=== PATIENT | female | born 1950 | race Two or more races ===

== ENCOUNTER → 2017-04-01 09:19 | Outpatient (CLI) | payer OTHER ==
[~2017-04-01 09:19] MED LIST: FENOFIBRATE PO; OSEL75CA PO; SORBUTUSS LIQU473 ML PO; TESSALON200 MG PO; [UNRECOGNIZED DRUG - OTHER] PO
== END | disposition home or self-care (01) ==
LOC: LAB 09:19
DX: I10 Essential (primary) hypertension (principal); E11.9 Type 2 diabetes mellitus without complications; E03.8 Other specified hypothyroidism; E78.2 Mixed hyperlipidemia; N39.0 Urinary tract infection, site not specified; R82.79 Other abnormal findings on microbiological examination of urine

== ENCOUNTER 2017-08-01 10:12 | Outpatient (CLI) | payer OTHER | END 2017-08-01 10:29 | disposition home or self-care (01) | LOC: NUCLEAR 10:12 | DX: M81.0 Age-related osteoporosis without current pathological fracture (principal) ==

== ENCOUNTER 2017-08-04 09:13 | Outpatient (CLI) | payer OTHER | END 2017-08-04 09:18 | disposition home or self-care (01) | LOC: LAB 09:13 | DX: D64.89 Other specified anemias (principal); I10 Essential (primary) hypertension; E72.8 Other specified disorders of amino-acid metabolism; R74.0 Nonspecific elevation of levels of transaminase and lactic acid dehydrogenase [LDH]; E03.8 Other specified hypothyroidism; E55.0 Rickets, active; M81.0 Age-related osteoporosis without current pathological fracture; C50.412 Malignant neoplasm of upper-outer quadrant of left female breast; N39.0 Urinary tract infection, site not specified ==

== ENCOUNTER 2017-10-07 07:15 | Outpatient (CLI) | payer OTHER | END 2017-10-07 07:50 | disposition home or self-care (01) | LOC: LAB 07:15 | DX: I10 Essential (primary) hypertension (principal); E11.9 Type 2 diabetes mellitus without complications; E03.8 Other specified hypothyroidism; E78.2 Mixed hyperlipidemia ==

== ENCOUNTER 2018-02-04 10:11 | Outpatient (CLI) | payer OTHER | END 2018-02-04 10:35 | disposition home or self-care (01) | LOC: LAB 10:11 | DX: N39.0 Urinary tract infection, site not specified (principal); N18.2 Chronic kidney disease, stage 2 (mild); M81.0 Age-related osteoporosis without current pathological fracture ==

== ENCOUNTER 2018-04-10 09:45 | Outpatient (CLI) | payer OTHER | END 2018-04-10 09:54 | disposition home or self-care (01) | LOC: LAB 09:45 | DX: I10 Essential (primary) hypertension (principal); E11.9 Type 2 diabetes mellitus without complications; E03.8 Other specified hypothyroidism; E78.2 Mixed hyperlipidemia; N39.0 Urinary tract infection, site not specified ==

== ENCOUNTER 2018-07-16 07:48 | Outpatient (CLI) | payer OTHER | END 2018-07-16 07:58 | disposition home or self-care (01) | LOC: LAB 07:48 | DX: N39.0 Urinary tract infection, site not specified (principal); E03.8 Other specified hypothyroidism; E11.9 Type 2 diabetes mellitus without complications; I10 Essential (primary) hypertension; E78.2 Mixed hyperlipidemia; Z12.11 Encounter for screening for malignant neoplasm of colon; C50.412 Malignant neoplasm of upper-outer quadrant of left female breast ==

== ENCOUNTER 2018-11-11 07:49 | Outpatient (CLI) | payer OTHER | END 2018-11-11 07:54 | disposition home or self-care (01) | LOC: LAB 07:49 | DX: I10 Essential (primary) hypertension (principal); E11.9 Type 2 diabetes mellitus without complications; E03.8 Other specified hypothyroidism; E78.2 Mixed hyperlipidemia; N39.0 Urinary tract infection, site not specified ==

== ENCOUNTER 2019-03-25 11:24 | Outpatient (CLI) | payer OTHER | END 2019-03-25 15:01 | disposition home or self-care (01) | LOC: MRI 11:24 | DX: M54.5 Low back pain (principal); M25.551 Pain in right hip; M25.552 Pain in left hip | CPT/HCPCS: 72148 ==

== ENCOUNTER → 2019-07-12 09:12 | Outpatient (CLI) | payer OTHER | END | disposition home or self-care (01) | LOC: LAB 09:12 | DX: E11.9 Type 2 diabetes mellitus without complications (principal); I10 Essential (primary) hypertension; E03.8 Other specified hypothyroidism; E78.2 Mixed hyperlipidemia; N39.0 Urinary tract infection, site not specified ==

== ENCOUNTER 2019-08-24 14:21 | Outpatient (CLI) | payer OTHER | END 2019-08-24 14:22 | disposition home or self-care (01) | LOC: NUCLEAR 14:21 | PROVIDERS: ATTEND Obstetrics & Gynecology | DX: M81.0 Age-related osteoporosis without current pathological fracture (principal) ==

== ENCOUNTER 2020-01-25 08:24 | Outpatient (CLI) | payer OTHER | END 2020-01-25 15:00 | disposition home or self-care (01) | LOC: LAB 08:24 | PROVIDERS: ATTEND Internal Medicine Hematology & Oncology | DX: D64.89 Other specified anemias (principal); I10 Essential (primary) hypertension; R74.8 Abnormal levels of other serum enzymes; E78.00 Pure hypercholesterolemia, unspecified; E03.8 Other specified hypothyroidism; E11.9 Type 2 diabetes mellitus without complications; E78.2 Mixed hyperlipidemia; N39.0 Urinary tract infection, site not specified ==

== ENCOUNTER 2020-10-11 07:54 | Outpatient (CLI) | payer OTHER | END 2020-10-11 08:04 | disposition home or self-care (01) | LOC: TOM 07:54 | PROVIDERS: ATTEND Internal Medicine Gastroenterology | DX: K80.80 Other cholelithiasis without obstruction (principal); Z12.11 Encounter for screening for malignant neoplasm of colon; K57.90 Diverticulosis of intestine, part unspecified, without perforation or abscess without bleeding ==

== ENCOUNTER 2020-10-17 13:22 | Outpatient (CLI) | payer OTHER | END 2020-10-17 13:23 | disposition home or self-care (01) | LOC: NUCLEAR 13:22 | PROVIDERS: ATTEND Obstetrics & Gynecology | DX: M81.0 Age-related osteoporosis without current pathological fracture (principal) ==

== ENCOUNTER 2021-03-14 08:55 | Outpatient (CLI) | payer OTHER | END 2021-03-14 09:03 | disposition home or self-care (01) | LOC: LAB 08:55 | PROVIDERS: ATTEND Internal Medicine Cardiovascular Disease | DX: N39.0 Urinary tract infection, site not specified (principal); I10 Essential (primary) hypertension; E11.9 Type 2 diabetes mellitus without complications; E03.8 Other specified hypothyroidism; E78.2 Mixed hyperlipidemia; Z12.11 Encounter for screening for malignant neoplasm of colon; E55.9 Vitamin D deficiency, unspecified ==

== ENCOUNTER 2021-04-25 10:40 | Outpatient (CLI) | payer OTHER | END 2021-04-25 10:49 | disposition home or self-care (01) | LOC: SONOGRAMA 10:40 | PROVIDERS: ATTEND Obstetrics & Gynecology | DX: R33.9 Retention of urine, unspecified (principal) ==

== ENCOUNTER 2021-06-01 12:30 | Outpatient (CLI) | payer OTHER | END 2021-06-01 13:00 | disposition home or self-care (01) | LOC: PPH VACUNA 12:30 | PROVIDERS: ATTEND Emergency Medicine Pediatric Emergency Medicine | DX: Z23 Encounter for immunization (principal) ==

== ENCOUNTER 2021-08-22 08:42 | Outpatient (CLI) | payer OTHER | END 2021-08-22 08:51 | disposition home or self-care (01) | LOC: TOM 08:42 | PROVIDERS: ATTEND Specialist | DX: R10.9 Unspecified abdominal pain (principal) ==

== ENCOUNTER 2021-12-07 13:30 | Outpatient (CLI) | payer OTHER | END 2021-12-07 13:40 | disposition home or self-care (01) | LOC: PPH VACUNA 13:30 | PROVIDERS: ATTEND Emergency Medicine Pediatric Emergency Medicine | DX: Z23 Encounter for immunization (principal) ==

== ENCOUNTER 2022-03-12 08:25 | Outpatient (CLI) | payer OTHER | END 2022-03-12 08:27 | disposition home or self-care (01) | LOC: LAB 08:25 | PROVIDERS: ATTEND Internal Medicine Cardiovascular Disease | DX: I10 Essential (primary) hypertension (principal); E11.9 Type 2 diabetes mellitus without complications; E03.9 Hypothyroidism, unspecified; E78.2 Mixed hyperlipidemia; E55.9 Vitamin D deficiency, unspecified ==

== ENCOUNTER 2022-04-28 09:49 | Emergency (ER) | payer OTHER ==
[~2022-04-28] VITALS: Ht 154.9 cm; Wt 59.0 kg
[2022-04-28] MEDS ORDERED: CANDESARTAN CIL16 MG PO (10:05)
[2022-04-28] MEDS ORDERED: ZITHROMAX500 MG PO (13:28)
[2022-04-28] MEDS ORDERED: TUSNEL DM LIQU473 ML PO (13:28)
== END 2022-04-28 14:11 | disposition home or self-care (01) ==
LOC: ER 09:49
DX: J06.9 Acute upper respiratory infection, unspecified (principal); J00 Acute nasopharyngitis [common cold]; Z20.822 Contact with and (suspected) exposure to COVID-19; Z91.018 Allergy to other foods; Z91.048 Other nonmedicinal substance allergy status

== ENCOUNTER 2023-04-06 08:08 | Emergency (ER) | payer OTHER ==
[~2023-04-06] VITALS: Ht 154.9 cm; Wt 58.1 kg
[~2023-04-06 08:08] MED LIST changes: +CANDESARTAN CIL16 MG PO; +TUSNEL DM LIQU473 ML PO; +ZITHROMAX500 MG PO
[2023-04-06 11:32] LABS: HEMATOCRIT 38.3 % (36.0-45.00); HEMOGLOBIN 12.7 g/dL (12.0-15.00); MEAN CELL VOLUME 87.1 fL (80.00-100.00); MEAN CORPUSCULAR HEMOGLOBIN 28.9 pg (27.00-32.0); MEAN CORPUSCULAR HGB CONC 33.1 g/dl (32.0-36.0); PLATELET COUNT 248 K/uL (150-450); RED BLOOD COUNT 4.39 M/uL (4.00-6.00); RED CELL DISTRIBUTION WIDTH 14.6 % (11.5-14.5)
[2023-04-06] MEDS ORDERED: FLONASE ALLERG9.9 ML NASAL (15:04)
[2023-04-06] MEDS ORDERED: BENZONATATE100 MG PO (15:04)
[2023-04-06] MEDS ORDERED: MUCINEX DM ER1 EACH PO (15:04)
== END 2023-04-06 15:34 ==
LOC: ER 08:08
PROVIDERS: General Practice
DX: J32.9 Chronic sinusitis, unspecified (principal); J06.9 Acute upper respiratory infection, unspecified; I10 Essential (primary) hypertension; Z91.018 Allergy to other foods; Z20.822 Contact with and (suspected) exposure to COVID-19

== ENCOUNTER 2023-11-06 13:07 | Outpatient (CLI) | payer OTHER ==
[~2023-11-06 13:07] MED LIST changes: +BENZONATATE100 MG PO; +FLONASE ALLERG9.9 ML NASAL; +MUCINEX DM ER1 EACH PO
== END 2023-11-06 13:09 | disposition home or self-care (01) ==
LOC: NUCLEAR 13:07
PROVIDERS: ATTEND Internal Medicine Cardiovascular Disease
DX: M81.0 Age-related osteoporosis without current pathological fracture (principal); E55.9 Vitamin D deficiency, unspecified

== ENCOUNTER 2023-11-20 12:14 | Outpatient (CLI) | payer OTHER | END 2023-11-20 12:16 | disposition home or self-care (01) | LOC: RAD 12:14 | PROVIDERS: ATTEND Internal Medicine Cardiovascular Disease | DX: I10 Essential (primary) hypertension (principal) ==

== ENCOUNTER 2024-05-18 10:51 | Outpatient (CLI) | payer OTHER | END 2024-05-18 10:54 | disposition home or self-care (01) | LOC: RAD 10:51 | PROVIDERS: ATTEND Physical Medicine & Rehabilitation | DX: M54.59 Other low back pain (principal) ==

== ENCOUNTER 2024-10-07 13:58 | Outpatient (CLI) | payer OTHER | END 2024-10-07 13:59 | disposition home or self-care (01) | LOC: MAMO-SONO 13:58 | PROVIDERS: ATTEND Specialist | DX: Z85.3 Personal history of malignant neoplasm of breast (principal) ==